=== PATIENT | female | born 2005 | race Caucasian/White ===

== ENCOUNTER 2024-09-07 04:15 | Emergency (ER) | payer MEDICAID ==
[~2024-09-07] VITALS: Ht 167.6 cm; Wt 45.4 kg
[2024-09-07] MEDS ORDERED: FAMOTIDINE. 20 MG/2 ML VIAL IV ONE (05:00)
[2024-09-07] MEDS ORDERED: ONDANSETRON 4 MG/2 ML VIAL ONE (05:00)
[2024-09-07] MEDS: IV NORMAL SALINE 1000 ML BAG IV ONE (05:02)
[2024-09-07] MEDS: ONDANSETRON 4 MG/2 ML VIAL IV ONE (05:02)
[2024-09-07] MEDS: FAMOTIDINE. 20 MG/2 ML VIAL IV ONE (05:03)
[2024-09-07 05:07] LABS: BASOPHILS % (AUTO) 0.3 % (0.0-2.0); EOSINOPHILS % (AUTO) 0.3 % (0.0-7.0); HEMATOCRIT 44.2 % (31.2-41.9); LYMPHOCYTES # (AUTO) 0.9 K/uL (0.8-4.8); LYMPHOCYTES % (AUTO) 6.8 % (20.5-74.5); MEAN CORPUSCULAR HEMOGLOBIN 30.9 uug (24.7-32.8); MEAN CORPUSCULAR HGB CONC 34 g/dL (32.3-35.6); MEAN CORPUSCULAR VOLUME 91.1 fL (75.5-95.3); MONOCYTES # (AUTO) 0.4 K/uL (0.1-1.30); MONOCYTES % (AUTO) 3.3 % (0-11); NEUTROPHILS # (AUTO) 11.5 K/uL (1.8-8.9); NEUTROPHILS % (AUTO) 89.3 % (31.5-64.5); PLATELET COUNT (AUTO) 226 K/uL (179-408); RED BLOOD CELL COUNT(AUTO) 4.85 MIL/uL (3.63-4.92); WHITE BLOOD COUNT (AUTO) 12.9 K/uL (3.8-11.8)
[2024-09-07 05:10] LABS: *BILIRUBIN,URIN NEGATIVE (NEGATIVE); *BLOOD, URINE NEGATIVE (NEGATIVE); *CLARITY,URINE CLEAR (CLEAR); *COLOR,URINE YELLOW (YELLOW); *KETONES,URINE 1+ (NEGATIVE); *PROTEIN,URINE NEGATIVE (NEGATIVE); *UROBILINOGEN,URINE 0.2 E.U./dl (NORMAL); LEUKOCYTE ESTERASE ,URINE NEGATIVE (NEGATIVE); NITRITE, URINE NEGATIVE (NEGATIVE); UGLUCOSE NEGATIVE (NEGATIVE)
[2024-09-07 05:15] LABS: DIFFERENTIAL COMMENT 1
[2024-09-07 05:23] LABS: CALCIUM 10.1 mg/dL (8.5-10.1); CREATININE 0.8 mg/dL (0.6-1.3); POTASSIUM 3.6 mmol/L (3.5-5.1)
[2024-09-07 05:28] LABS: RBC,URINE 0-3 /HPF (0-3)
[2024-09-07 05:29] LABS: ALBUMIN 4.5 g/dL (3.4-5.0); BACTERIA,URINE MODERATE /HPF (NONE SEEN); BILIRUBIN,DIRECT 0.2 mg/dL (0.0-0.2); BILIRUBIN,TOTAL 1.1 mg/dL (0.2-1.0); SQUAMOUS EPITHELIAL CELL,UR MODERATE /HPF (NONE SEEN); TOTAL PROTEIN, SERUM 8.7 g/dL (6.4-8.2); WBC,URINE 0-3 /HPF (0-3)
[2024-09-07 05:35] LABS: *URINE HCG, QUAL NEGATIVE (NEGATIVE)
[2024-09-07] MEDS ORDERED: ONDA4TAB11 PO (05:56)
[2024-09-07 06:15] VITALS: BP 112/75; TEMP 97.3; O2SAT 98
== END 2024-09-07 06:16 | disposition home or self-care (01) ==
LOC: ER 04:15
DX: K29.70 Gastritis, unspecified, without bleeding (principal); R11.2 Nausea with vomiting, unspecified; J45.909 Unspecified asthma, uncomplicated
CPT/HCPCS: 99284; 96374; 96361; 96375; 80076; 80048; 81001; 84703; 83690; 85025; 87086; 36415; J1308; J2405; J7040; A4606; A4663